=== PATIENT | female | born 1965 | race Caucasian/White ===

== ENCOUNTER 2018-07-27 20:59 | Inpatient (IN) | payer OTHER, MEDICAID ==
[~2018-07-27] VITALS: Ht 165.1 cm; Wt 85.7 kg
[~2018-07-27 20:59] MED LIST: ARAVA20 MG PO; ATIVAN0.5 MG PO; AZITHROMYCIN 2250 MG PO; B12INJ IM; BACTRIM DS TAB1 EACH PO; BUSPIRONE HCL10 MG PO; CEFUROXIME250 MG PO; CELEXA20 MG PO; CIPROFLOXACIN500 M1 PO; DUONEB 2.5-0.5 M3 ML INH; FLEXERIL PO; HUMIRA40 MG/0.1 SQ; HYDROCODON-ACE1 EAC7 PO; HYDROCODON-ACE1 EACH PO; HYDROCODONE-AP1 EAC6 PO; HYDROXYCHLOROQ200 M1 PO; IPRAT-ALBUT 0.5-3 ML IH; KETOCONAZOLE 2200 MG PO; LEVAQUIN 750 M750 MG PO; LOPERAMIDE 2 MG2 M1 PO; MOBIC15 MG PO; MUCINEX TA600 MG/TA2 PO; NICOTINE TRANSD21 M1 TRANSDERM; NORCO 5-325 TA1 EACH PO; OMEPRAZOLE40 MG PO; PREDNISONE 10 M10 M1 PO; PREDNISONE 10 M10 MG PO; PREDNISONE 20 M20 MG PO; PROZAC20 MG PO; PULMICORT0.5 MG/21 INH; ROBITUSSIN100 MG/53 PO; SEROQUEL 25 MG25 M1 PO; TESSALON200 MG PO; VENTOLIN HFA INH8 GM IH; VITAMINS; WOMEN MULTIVIT1 EACH PO; WOMEN'S DAILY1 EACH PO; ZPAK PO; ZYRTEC
[2018-07-27 21:00] VITALS: BP 125/45
[2018-07-27] MEDS ORDERED: COREG12.5 MG PO (21:15)
[2018-07-27] MEDS ORDERED: FISH OIL 1,001000 M2 PO (21:15)
[2018-07-27] MEDS ORDERED: SPIRONOLACTONE25 M1 PO (21:16)
[2018-07-27] MEDS ORDERED: BENICAR20 MG PO (21:17)
[2018-07-27] MEDS ORDERED: WELLBUTRIN SR150 MG PO (21:18)
[2018-07-27] MEDS ORDERED: CLONAZEPAM 0.50.5 M1 PO (21:20)
[2018-07-27] MEDS ORDERED: SPIRIVA INH (21:21)
[2018-07-27] MEDS ORDERED: CORLANOR5 MG PO (21:22)
[2018-07-27] MEDS ORDERED: ASPIR 8181 M1 PO (21:23)
[2018-07-27 21:28] LABS: ABSOLUTE BASOPHILS 0.1 thou/uL (0.0-0.2); ABSOLUTE EOSINOPHILS 0.3 thou/uL (0.0-0.7); ABSOLUTE LYMPHOCYTES 1.6 thou/uL (0.8-5.3); ABSOLUTE MONOCYTES 1.5 thou/uL (0.0-1.2); ABSOLUTE NEUTROPHILS 8.7 thou/uL (1.6-8.1); BASOPHILS 0.8 %; EOSINOPHILS 2.5 %; HEMATOCRIT 39.8 % (37.0-47.0); HEMOGLOBIN 13.3 gm/dL (12.0-15.0); LYMPHOCYTES 13.3 %; MCH 29.3 pg (26.0-34.0); MCHC 33.5 g/dL (28.0-37.0); MCV 87.5 fL (80.0-100.0); MONOCYTES 12.1 %; MPV 7.7 fl. (7.2-11.1); NUCLEATED RBCS 0 /100WBC; PLATELET COUNT* 268 thou/uL (150-400); POLYS 71.3 %; RBC 4.54 mil/uL (4.20-5.00); RDW-CV 13.7 % (10.5-14.5); WBC 12.2 thou/uL (4.0-11.0)
[2018-07-27 21:35] LABS: ANION GAP 7 mmol/L (7-16); BUN 14 mg/dL (7-18); CALCIUM 8.9 mg/dL (8.5-10.1); CHLORIDE 100 mmol/L (98-107); CO2 27 mmol/L (21-32); CREATININE 1.1 mg/dL (0.6-1.3); GLUCOSE 112 mg/dL (70-99); POTASSIUM 4.1 mmol/L (3.5-5.1); SODIUM 134 mmol/L (136-145)
[2018-07-27 21:39] LABS: PROTIME 9.8 Seconds (9.20-11.50)
[2018-07-27 21:46] LABS: ALBUMIN 3.1 g/dL (3.4-5.0); ALKALINE PHOSPHATASE 107 U/L (46-116); NT-PRO BRAIN NAT PEPTIDE 219 pg/mL (<300); SGOT 35 U/L (15-37); SGPT 59 U/L (30-65); TOTAL BILIRUBIN 0.8 mg/dL (<0.1-1.0); TOTAL PROTEIN 7.5 g/dL (6.4-8.2); TROPONIN-I LEVEL <0.06 ng/mL (<0.06)
[2018-07-27 23:29] LABS: URINE BLOOD NEGATIVE (Negative); URINE CLARITY CLEAR; URINE COLOR YELLOW; URINE GLUCOSE-RANDOM NEGATIVE (Negative); URINE KETONES TRACE (Negative); URINE LEUKOCYTES-REFLEX TRACE (Negative); URINE NITRITE-REFLEX NEGATIVE (Negative); URINE PROTEIN NEGATIVE (Negative); URINE SPECIFIC GRAVITY >= 1.030 (1.005-1.030)
[2018-07-27 23:49] LABS: URINE BILIRUBIN 1+ (Negative)
[2018-07-27 23:51] LABS: ICTOTEST (BILI CONFIRMATORY) Negative (Negative)
[2018-07-28 00:30] LABS: CASTS None Seen /LPF (None Seen); MUCUS 4-6 Moderate strn/LPF (None Seen); SQUAMOUS >10 Many /LPF (0-3)
[2018-07-28 00:31] LABS: CRYSTALS None Seen /LPF (None Seen); URINE RBC 0-2 Rare /HPF (0-2); URINE WBC-REFLEX 6-15 Few /HPF (0-5)
[2018-07-28 00:55] VITALS: BP 124/55
[2018-07-28 02:57] LABS: INFLUENZA A ANTIGEN None Detected (None Detect); INFLUENZA B ANTIGEN None Detected (None Detect)
[2018-07-28 04:00] VITALS: BP 114/51
--- NOTE | 2018-07-28 06:52 | NUR ---
VITALS WNL. SEE MAR. SEE CHARTING. HOURLY ROUNDING FOR SAFETY.
[2018-07-28 08:00] VITALS: BP 136/68
--- NOTE | 2018-07-28 09:52 | NUR ---
ASSUMED PT. CARE AND RECEIVED REPORT AT 0730. PT A/OX4, VSS, MONITOR ON TRACING SR. PT. DENIES CURRENT PAIN. NOTES SOME MINOR SOB WITH ACTIVITY. ON 2L NC @ 95%. FULL ASSESSMENT COMPLETED, REFER TO CHARTING. CALL LIGHT IN REACH, WILL CONTINUE WITH PLAN OF CARE.
[2018-07-28 12:00] VITALS: BP 117/55
--- NOTE | 2018-07-28 12:31 | EKG ---
[place] [address] ELECTROCARDIOGRAM REPORT Name: YAMIL GODINEZ I Room: [address] ADM IN [facility].#: [id number] Admission: 07/27/18 Attend Phys: Shannon Byrne MD Discharge: Date of : 63 Report #: [id number] THIS REPORT FOR: //name// [facility] ED Test Date: 2018-07-27 Test Time: 21:02:03 Pat Name: YAMIL GODINEZ Department: Room: [facility] Gender: F Sterilizer Machine Operator: : 1965 Requested By: Symone [place] Order Number: [id number] MD: Enoch Cason Measurements Intervals [place] Rate: 76 P: 61 GA: 147 QRS: 36 QRSD: 87 T: 91 QT: 368 QTc: 414 Interpretive Statements Sinus rhythm Nonspecific repol abnormality, diffuse leads Compared to ECG 10/27/2016 20:57:20 Sinus tachycardia no longer present Electronically Signed On 07-28-2018 12:31:08 [employer]PERVISOR [employer]AK[employer] by Enoch Cason [email or web address] <ELECTRONICALLY SIGNED> By: Enoch Cason MD, [facility] 07/28/18 1231 01 01 Enoch Cason MD, [facility] /EPI
--- NOTE | 2018-07-28 14:14 | NUR ---
Pt is A&O. Resides at home alone. Normally active and independent. Pt has a home neb, no home o2. Hx of [facility]. No hx of SNF. Supportive mom that is involved in POC. Cardiology consult pending. Following.
[2018-07-28 16:00] VITALS: BP 123/57
--- NOTE | 2018-07-28 19:03 | NUR ---
PT. STABLE THROUGH SHIFT, UP IN ROOM AD ROSE. REMAINS ON 2LNC. COUGH PRESENT WITH ACTIVITY. PT. SLEPT MOST OF THE AFTERNOON, DUE TO LACK OF SLEEP DURING THE NIGHT. PAIN WELL MANAGED WITH PO MEDS. CARDIOLOGY SEEN AND S/O THIS AFTERNOON. HOURLY ROUNDING COMPLETED THROUGH OUT THE DAY FOR PT. SAFETY.
[2018-07-28 20:35] VITALS: BP 130/61
[2018-07-29] VITALS: BP 111/54
[2018-07-29 04:00] VITALS: BP 108/44
--- NOTE | 2018-07-29 06:05 | NUR ---
PT IS ABLE TO COMMUNICATE HER NEEDS TO STAFF EFFECTIVELY. CURRENT PAIN MEDICATION REGIMEN HAS BEEN ADEQUATE FOR CONTROLLING HER PAIN UP TO THIS TIME.
[2018-07-29 08:00] VITALS: BP 105/60
[2018-07-29 12:00] VITALS: BP 118/60
[2018-07-29 13:52] LABS: BE 0.1 mmol/L (-2 to +3); HCO3 24.7 mmol/L (22.0-26.0); PCO2 40.3 mmHg (35.0-45.0); pH 7.406 (7.340-7.450)
--- NOTE | 2018-07-29 14:22 | CON ---
[address] [address] CONSULTATION Name: YAMIL GODINEZ I Room: [address] IN M.R.#: [id number] Admission: 07/27/18 Attend Phys: Shannon Byrne MD Discharge: Date of : 63 Report #: [id number] THIS REPORT FOR: //name// CC: Unruly Ryan DO Shannon Byrne DATE OF SERVICE: 07/28/2018 HISTORY OF PRESENT ILLNESS: The patient is a 53-year-old single white female who I was asked to see in the hospital today after she complained of chest tightness. Unfortunately, the old records are not available. The history is obtained from the patient. She states that she was diagnosed with heart disease a couple of years ago. She apparently had a heart catheterization and was found to have normal coronary arteries. She was told that she had a weak heart muscle and was only functioning at 35% of normal. She never required stent or bypass surgery. She has been followed by Dr. Lima at [place]. She recently saw Dr. Lima who suggested that she consider having implantation of a defibrillator. She has no history of palpitation or syncope. She notes for the past few weeks, she has had a chronic cough from the fever, has a runny nose. She has been around family members who had "same thing." Because of her shortness of breath and cough, she finally called the ambulance last night, was brought here to [place]. She does note some chest tightness. It is worse if she coughs. It can last for days. She feels a heavy sensation, is not related to exertion or meals. She has had no bleeding. Denied any trauma to her chest. There is no radiation of pain to her arms or jaw. PAST MEDICAL HISTORY: She has had previous ankle surgery, . She has a history of hypertension, COPD. No history of diabetes or hyperlipidemia. She has been admitted here to [place] in the past. She was here in 2016 with shortness of breath and felt to have bronchitis. She was here in October of this year with pneumonia. CURRENT MEDICATIONS: Consists of Pulmicort capsules, prednisone, DuoNeb treatment, omeprazole, carvedilol, spironolactone, Benicar, Corlanor. She takes an aspirin a day. ALLERGIES: She has no known drug allergies. She does have a history of sleep apnea and uses CPAP. FAMILY HISTORY: Her mother had a pacemaker. A grandparent had a coronary stent. SOCIAL HISTORY: She is and lives herself in [place]. She is on disability. Continues to smoke, [place] [address] CONSULTATION Name: GRETCHENYAMIL I Room: [address] IN .R.#: [id number] Admission: 07/27/18 Attend Phys: Shannon Byrne MD Discharge: Date of : 63 Report #: [id number] REVIEW OF SYSTEMS: She has had no history of stroke, peptic ulcer disease, although she has had a hiatal hernia. No history of liver disease, kidney disease, cancer, psychiatric illness, chronic skin condition. PHYSICAL EXAMINATION: GENERAL: Revealed a middle-aged female lying in bed. She appeared in no distress. VITAL SIGNS: She had a blood pressure of 120/60, pulse 60. She is afebrile. HEENT: She was anicteric, conjunctiva pink. Mucous members moist. NECK: Veins do not appear distended. Neck was supple. CHEST: No expiratory wheezes. CARDIAC: Regular rate and rhythm. No significant murmur. ABDOMEN: Soft. EXTREMITIES: Had no edema. Dorsalis pedis pulse 2+ bilaterally. SKIN: Warm, dry. NEUROLOGIC: Nonfocal. LYMPH: No adenopathy. MUSCULOSKELETAL: No joint effusion. LABORATORY DATA: ECG showed a sinus rhythm, nonspecific ST and T-wave changes. Workup in the Emergency Room, she had portable chest x-ray yesterday that showed normal heart size and clear lung ball. She actually had a CT scan of the chest using a PE protocol in 2017 that showed no pulmonary embolus or aortic dissection. She was noted to have pulmonary venous congestion, minimal mediastinal adenopathy. Her lab work, sodium 134, creatinine 1.1, albumin 3.1. Troponin 0.06. White blood cell count 12.2, hemoglobin 13.3. She had urinalysis, 1+ bilirubin, trace ketones, trace leukocytes, many squamous cells, moderate bacteria. IMPRESSION AND RECOMMENDATIONS: 1. Nonischemic cardiomyopathy. I will attempt to obtain the records from Dr. Lima. The patient is on an ARB and a beta marleny. No evidence of pulmonary edema at this time. 2. Bronchitis. 3. Sleep apnea. 4. Hiatal hernia. 5. Bronchitis. 6. Chest tightness, suspect secondary to bronchitis. <ELECTRONICALLY SIGNED> By: Enoch Cason MD, FACC 07/29/18 1422 [id number] Cason MD, FACC /nt
--- NOTE | 2018-07-29 14:30 | NUR ---
VERBAL REPORT GIVEN FROM ELIZABETH GAUTHIER ASSUMED PATIENT CARE PATIENT SEEN AT BEDSIDE, IN BED ASLEEP
--- NOTE | 2018-07-29 15:27 | NUR ---
SPOKE TO DR KRISHNAN REGARDING ABG AND RESTING/EXERCISE OXIMETRY RESUKLTS NO ORDERS FOR DISCHARGE TODAY PATIENT NOTIFIED OF LILLIAN MONTERO
[2018-07-29 16:00] VITALS: BP 130/55
[2018-07-29 20:30] VITALS: BP 141/74
[2018-07-30] VITALS: BP 90/61
[2018-07-30 04:00] VITALS: BP 118/64
--- NOTE | 2018-07-30 05:38 | NUR ---
PT CARE ASSUMED AT 1930. SAT MAINTAINED IN 1L NC. PT HAS HARSH COUGH. ALERT AND ORIENTED X4. CALL LIGHT WITHIN REACH AND BED IN LOW POSITION. HOURLY ROUNDING DONE FOR PT SAFETY.
[2018-07-30 08:51] VITALS: BP 128/89
[2018-07-30] MEDS ORDERED: THROAT LOZENGE1 EACH PO (11:40)
[2018-07-30] MEDS ORDERED: IPRAT-ALBUT 0.5-3 ML INH (11:43)
[2018-07-30] MEDS ORDERED: AZITHROMYCIN 2250 MG PO (11:44)
[2018-07-30] MEDS ORDERED: TESSALON PERLE100 MG PO (11:45)
[2018-07-30] MEDS ORDERED: PREDNISONE 10 M10 MG PO (11:48)
[2018-07-30 11:51] VITALS: BP 128/89
--- NOTE | 2018-07-30 12:02 | NUR ---
ASSUMED CARE OF PT AROUND 0730 THIS AM. REFER TO ASSESSMENT. PT VOICES CONCERNS OF WANTING TO GO HOME. PT GIVEN DC ORDERS WITH PHYSICIAN ROUNDING. PT GIVEN DC INSTRUCTIONS AT THIS TIME AND VERBALIZES UNDERSTANDING. PT GIVEN FOUR SCRIPTS. NO OTHER CONCERNS AT THIS TIME. CLWR. WCTM.
== END 2018-07-30 12:30 | disposition home or self-care (01) | DRG 189 ==
LOC: M.ERS 20:59 → M.2W 23:54 → M.TBA-ER 23:54 → M.2W 07-28 00:53
PROVIDERS: Emergency Medicine; Family Medicine; ADMIT Internal Medicine
DX: J96.01 Acute respiratory failure with hypoxia (principal); R65.11 Systemic inflammatory response syndrome (SIRS) of non-infectious origin with acute organ dysfunction; J44.1 Chronic obstructive pulmonary disease with (acute) exacerbation; N39.0 Urinary tract infection, site not specified; I42.8 Other cardiomyopathies; R07.89 Other chest pain; G47.33 Obstructive sleep apnea (adult) (pediatric); G56.03 Carpal tunnel syndrome, bilateral upper limbs; M19.90 Unspecified osteoarthritis, unspecified site; K44.9 Diaphragmatic hernia without obstruction or gangrene; F32.9 Major depressive disorder, single episode, unspecified; M79.7 Fibromyalgia; F41.9 Anxiety disorder, unspecified; I50.9 Heart failure, unspecified; I11.0 Hypertensive heart disease with heart failure; Z79.2 Long term (current) use of antibiotics; Z79.82 Long term (current) use of aspirin; Z79.899 Other long term (current) drug therapy; Z87.891 Personal history of nicotine dependence; Z82.49 Family history of ischemic heart disease and other diseases of the circulatory system; Z82.5 Family history of asthma and other chronic lower respiratory diseases